=== PATIENT | female | born 1955 | race Caucasian/White ===

== ENCOUNTER → 2018-09-24 | Outpatient (CLI) | payer OTHER ==
[~2018-09-24] MED LIST: ASPI325 PO; ATOR10 PO; BIOTIN PLUS KE1 EACH PO; CHOL10002 PO; Citalopram HBr10 MG PO; IBUP800 PO; LEVSOD88 PO; SERT25 PO
== END | disposition home or self-care (01) ==
LOC: LAB SHORT 17:30 → LAB 17:30 → LAB SHORT 09-25 08:35
DX: R82.998 Other abnormal findings in urine (principal)
CPT/HCPCS: 87077; 87086; 87186

== ENCOUNTER 2023-10-25 07:54 | Day surgery (SDC) | payer MEDICARE ==
[~2023-10-25] VITALS: Ht 175.3 cm; Wt 97.9 kg
[~2023-10-25 07:54] MED LIST changes: +Ropivacaine 0.5% HCl/Pf 5 MG/ML 20ML VIAL ONE
[2023-10-25] MEDS ORDERED: Lactated Ringer's 1,000 ML IV ONE ×2 (08:10→08:19)
[2023-10-25] MEDS ORDERED: CeFAZolin Sodium 2,000 MG VIAL ONE (08:10)
[2023-10-25] MEDS ORDERED: NS 50 ML IV ONE (08:10)
[2023-10-25] MEDS ORDERED: Diclofenac Pota50 MG PO (08:21)
[2023-10-25] MEDS ORDERED: FentaNYL Citrate 50 MCG/ML 2 ML Injection ONE (08:48)
[2023-10-25] MEDS ORDERED: propofoL 20 ML IV ONE (08:49)
[2023-10-25] MEDS ORDERED: Glycopyrrolate 0.2 MG/ML 5ML VIAL ONE (09:23)
[2023-10-25] MEDS ORDERED: Midazolam HCl 1MG / ML 2ML Vial ONE (09:24)
[2023-10-25] MEDS ORDERED: Lidocaine HCl 1% 20 ML MDV INJ ONE ×2 (10:10)
[2023-10-25] MEDS ORDERED: Dexamethasone Sod Phos 10 MG/ML 1ML VIAL ONE (11:11)
[2023-10-25] MEDS ORDERED: Ondansetron HCl 2 MG / ML 2ML Vial ONE (11:11)
[2023-10-25] MEDS ORDERED: OxyCODONE 5 mg/Acetamin 325 mg TABLET ONE (12:30)
[2023-10-25 12:41] VITALS: BP 110/59
--- NOTE | 2023-10-25 12:43 | NUR ---
10/25/23 1243 Mei Nguyen PATIENT IN RECLINER WITH DAUGHTER AT BEDSIDE. DRINKING WATER AND EATING SALTINE CRACKERS WITH ANY DIFFICULTIES. PT REPORTS 0/10 PAIN IN R FOOT, BUT HAS 4/10 R KNEE PAIN. REPORTS THAT THIS KNEE PAIN IS CHRONIC FOR HER. PERCOCET 5-325MG PO X1 GIVEN AT 1338. VSS.
== END 2023-10-25 13:00 | disposition home or self-care (01) ==
LOC: ORSCSDS 07:54
PROVIDERS: Podiatrist Foot & Ankle Surgery
PROC: 0SGK04Z Fusion of Right Tarsometatarsal Joint with Internal Fixation Device, Open Approach (ICD-10-PCS; principal; 2023-10-25 09:15)
DX: M19.171 Post-traumatic osteoarthritis, right ankle and foot (principal); E78.5 Hyperlipidemia, unspecified; E03.9 Hypothyroidism, unspecified; F32.A Depression, unspecified; Z86.73 Personal history of transient ischemic attack (TIA), and cerebral infarction without residual deficits; Z85.828 Personal history of other malignant neoplasm of skin; Z79.899 Other long term (current) drug therapy
CPT/HCPCS: A9270; C1713; J0690; J1100; J2250; J2405; J2704; J2795; J3010; J7120